=== PATIENT | male | born 1970 | race American Indian/Alaskan Native ===

== ENCOUNTER → 2023-05-14 16:35 | Outpatient (REF) | payer OTHER, SELFPAY | LOC: RAD 16:35 | PROVIDERS: ATTENDING PHYSICIAN Internal Medicine Hematology & Oncology; FAMILY PHYSICIAN Family Medicine | DX: D47.2 Monoclonal gammopathy (principal); D51.3 Other dietary vitamin B12 deficiency anemia; D64.9 Anemia, unspecified; D50.9 Iron deficiency anemia, unspecified | CPT/HCPCS: 77075 ==

== ENCOUNTER → 2023-10-05 07:06 | Outpatient (REF) | payer OTHER, SELFPAY ==
[2023-10-05 07:39] LABS: % Basophils 0.4 % (0-2); % Eosinophils 8.8 % (0-6); % Immature Granulocytes 0.2 % (0-0.5); % Lymphocytes 42.9 % (20.5-51.1); % Monocytes 6.9 % (1.7-9.3); % Neutrophils 40.8 % (42.2-75.2); Absolute Eosinophils 0.4 10^3/uL (0-0.7); Absolute Monocytes 0.3 10^3/uL (0.1-0.6); Absolute Neutrophils 1.9 10^3/uL (1.4-6.5); Hematocrit 34.5 % (39.0-52.0); Hemoglobin 11.6 g/dL (13.0-18.0); Mean Corp Hgb Conc. 33.6 g/dL (33.0-37.0); Mean Corpuscular Hgb 27.2 pg (27.0-31.0); Mean Corpuscular Volume 80.8 fL (80.0-94.0); Mean Platelet Volume 9.7 fL (7.4-10.4); Nucleated Red Blood Cells % 0 % (-); Platelet Count 214 10^3/uL (130-400); Red Blood Cell Count 4.27 10^6/uL (4.70-6.10); Red Cell Dist. Width 13.4 % (11.5-14.5); White Blood Cell Count 4.7 10^3/uL (4.8-10.8)
[2023-10-05 07:45] VITALS: BP 141/71; BP_SYST 73
[2023-10-05 07:52] LABS: INR 1.01; PT 13.1 Sec (11.4-14.6)
[2023-10-05] MEDS: ATIVAN 0.5 MG IV (08:25)
[2023-10-05] MEDS: FLUSH (NSS) 1 FLUSH IV (08:25)
[2023-10-05] MEDS: NSS (PRESERVATIVE FREE) 0.25 ML IV (08:25)
[2023-10-05 09:29] VITALS: BP 127/58
== END ==
LOC: RADI 07:06
PROVIDERS: ATTENDING PHYSICIAN Internal Medicine Hematology & Oncology; FAMILY PHYSICIAN Family Medicine
DX: C90.00 Multiple myeloma not having achieved remission (principal); D47.2 Monoclonal gammopathy; D50.9 Iron deficiency anemia, unspecified; D51.3 Other dietary vitamin B12 deficiency anemia
CPT/HCPCS: 88305; 88311; 88312; 36415; 38222; 77012; 85025; 85610; 88313; 88341; 88342

== ENCOUNTER → 2023-11-09 08:45 | Outpatient (REF) | payer OTHER, SELFPAY | LOC: PET 08:45 | PROVIDERS: ATTENDING PHYSICIAN Internal Medicine Hematology & Oncology | DX: C90.00 Multiple myeloma not having achieved remission (principal) | CPT/HCPCS: 78816; A9552 ==

== ENCOUNTER → 2023-12-24 07:00 | Outpatient (REF) | payer OTHER, SELFPAY ==
[2023-12-24 08:25] LABS: Hematocrit 35.3 % (39.0-52.0); Hemoglobin 11.7 g/dL (13.0-18.0); Mean Corp Hgb Conc. 33.1 g/dL (33.0-37.0); Mean Corpuscular Hgb 27.2 pg (27.0-31.0); Mean Corpuscular Volume 82.1 fL (80.0-94.0); Mean Platelet Volume 9.4 fL (7.4-10.4); Platelet Count 237 10^3/uL (130-400); White Blood Cell Count 3.2 10^3/uL (4.8-10.8)
[2023-12-24 08:53] LABS: Band Neutrophils 0 % (0-3); Eosinophils 7 % (0-6); Lymphocytes 38 % (20-51); Monocytes 6 % (2-9); Normal RBC Morphology Yes; Platelets Checked Yes; Segmented Neutrophils 32 % (42-75); Total Cells Counted 100
[2023-12-24 08:54] LABS: Atypical Lymphocytes 17 %
[2023-12-24 08:58] LABS: ALT (SGPT) 77 U/L (0-50); AST (SGOT) 49 U/L (17-59); Albumin 4.5 g/dl (3.5-5.0); Alkaline Phosphatase 83 U/L (38-126); Blood Urea Nitrogen 11 mg/dl (9-20); Calcium 9.4 mg/dl (8.4-10.2); Carbon Dioxide 26 mmol/L (22-30); Chloride 100 mmol/L (98-107); Glucose 156 mg/dl (70-99); Sodium 141 mmol/L (135-145); Total Bilirubin 0.6 mg/dl (0.2-1.3); Total Protein 9.4 g/dl (6.3-8.2); eGFR > 60.00
[2023-12-24 21:31] LABS: Hepatitis B Surface Antigen Negative (Negative)
[2023-12-24 21:49] LABS: Hepatitis B Core Ab, Total Negative (Negative); Hepatitis B Surface Antibody Negative
[2023-12-24 22:00] LABS: Hepatitis A Antibody, Total Positive (Negative)
== END ==
LOC: REG 07:00
PROVIDERS: ATTENDING PHYSICIAN Internal Medicine Hematology & Oncology; FAMILY PHYSICIAN Family Medicine
DX: D47.2 Monoclonal gammopathy (principal); D51.3 Other dietary vitamin B12 deficiency anemia; D64.9 Anemia, unspecified; D50.9 Iron deficiency anemia, unspecified; C90.00 Multiple myeloma not having achieved remission
CPT/HCPCS: 36415; 80053; 85025; 86704; 86706; 86708; 86850; 86900; 86901; 87340

== ENCOUNTER → 2024-02-08 07:12 | Outpatient (REF) | payer OTHER, SELFPAY | LOC: HWRAD 07:12 | PROVIDERS: ATTENDING PHYSICIAN Student in an Organized Health Care Education/Training Program; FAMILY PHYSICIAN Family Medicine | DX: R79.89 Other specified abnormal findings of blood chemistry (principal) | CPT/HCPCS: 76700; 93975 ==

== ENCOUNTER → 2024-03-08 10:55 | Outpatient (REF) | payer OTHER, SELFPAY | LOC: RCS 10:55 | PROVIDERS: ATTENDING PHYSICIAN Nurse Practitioner Adult Health; FAMILY PHYSICIAN Family Medicine; REFERRING PHYSICIAN Internal Medicine Cardiovascular Disease | DX: I10 Essential (primary) hypertension (principal); D47.2 Monoclonal gammopathy; D51.3 Other dietary vitamin B12 deficiency anemia; D64.9 Anemia, unspecified; D50.9 Iron deficiency anemia, unspecified; C90.00 Multiple myeloma not having achieved remission | CPT/HCPCS: 93306 ==

== ENCOUNTER → 2024-03-11 06:43 | Outpatient (REF) | payer OTHER, SELFPAY | LOC: RSP 06:43 | PROVIDERS: ATTENDING PHYSICIAN Internal Medicine Hematology & Oncology; FAMILY PHYSICIAN Family Medicine | DX: D47.2 Monoclonal gammopathy (principal); C90.00 Multiple myeloma not having achieved remission; D51.3 Other dietary vitamin B12 deficiency anemia; D64.9 Anemia, unspecified; D50.9 Iron deficiency anemia, unspecified | CPT/HCPCS: 94727; 94729; 88738; 94060 ==

== ENCOUNTER → 2024-03-17 06:49 | Outpatient (REF) | payer OTHER, SELFPAY | LOC: HWRAD 06:49 | PROVIDERS: ATTENDING PHYSICIAN Internal Medicine Hematology & Oncology; FAMILY PHYSICIAN Family Medicine | DX: D17.9 Benign lipomatous neoplasm, unspecified (principal) | CPT/HCPCS: 76604 ==

== ENCOUNTER → 2024-09-17 07:47 | Outpatient (REF) | payer OTHER, SELFPAY | LOC: MRI 07:47 | PROVIDERS: ATTENDING PHYSICIAN Student in an Organized Health Care Education/Training Program; FAMILY PHYSICIAN Family Medicine | DX: R79.89 Other specified abnormal findings of blood chemistry (principal); K75.81 Nonalcoholic steatohepatitis (NASH); K82.4 Cholesterolosis of gallbladder | CPT/HCPCS: 74183; 76391; A9575 ==

== ENCOUNTER → 2025-02-02 06:50 | Outpatient (REF) | payer OTHER, SELFPAY | LOC: RAD 06:50 | PROVIDERS: ATTENDING PHYSICIAN Student in an Organized Health Care Education/Training Program; FAMILY PHYSICIAN Family Medicine | DX: K82.4 Cholesterolosis of gallbladder (principal) | CPT/HCPCS: 76700 ==